=== PATIENT | female | born 1975 | race Caucasian/White ===

== ENCOUNTER 2019-05-03 23:39 | Inpatient (IN) | payer MEDICAID, MEDICARE ==
[~2019-05-03] VITALS: Ht 165.1 cm; Wt 114.1 kg
[2019-05-04] MEDS ORDERED: METHYLPREDNISOLONE SOD SUCC 125 MG/2 ML VIAL IV STA (00:25)
[2019-05-04] MEDS ORDERED: SODIUM CHLORIDE 0.9% 1,000 ML IV ONE (00:25)
[2019-05-04] MEDS ORDERED: MAGNESIUM 2 G PREMIX 50 ML IV ONE (00:30)
[2019-05-04] MEDS ORDERED: IPRATROPIUM/ALBUTEROL 0.5-3(2.5)MG/3ML NEB HHN ONE (00:30)
[2019-05-04 00:47] LABS: CHLORIDE 103 mEq/L (98-107)
[2019-05-04 00:49] LABS: BASOPHILS % 0.8 % (0.0-2.0); EOSINOPHILS % 0.9 % (0.0-5.0); HEMATOCRIT. 43.6 % (36.0-48.0); HEMOGLOBIN. 14.3 g/dL (12.0-16.0); LYMPHOCYTES % 8.8 % (20.0-50.0); MEAN CORPUSCULAR HEMOGLOBIN 26.3 pg (28.0-32.0); MEAN CORPUSCULAR VOLUME 80.2 fL (81.0-99.0); MEAN PLATELET VOLUME 8.5 fl (7.4-10.4); MONOCYTES % 5.9 % (2.0-8.0); NEUTROPHILS % 83.6 % (40.0-76.0); PLATELET 294 x1000/uL (130-400); RED BLOOD CELL COUNT 5.43 mill/uL (4.2-5.4); RED CELL DISTRIBUTION WIDTH 16.6 % (11.6-14.6)
[2019-05-04] MEDS ORDERED: ALBUTEROL (0.5%) 2.5MG/0.5ML NEB HHN ONE (01:30)
[2019-05-04] MEDS ORDERED: ACETAMINOPHEN 325MG TABLET PO PRN (03:00)
[2019-05-04] MEDS ORDERED: IPRATROPIUM/ALBUTEROL 0.5-3(2.5)MG/3ML NEB HHN SCH (03:00)
[2019-05-04] MEDS ORDERED: DIPHENHYDRAMINE 50MG/ML VIAL IV PRN (03:00)
[2019-05-04] MEDS ORDERED: DEXTROSE 50% WATER 50ML SYRINGE IV PRN ×2 (03:00→05:00)
[2019-05-04] MEDS ORDERED: ONDANSETRON HCL 4MG/2ML INJ IV PRN (03:00)
[2019-05-04] MEDS ORDERED: IPRATROPIUM/ALBUTEROL 0.5-3(2.5)MG/3ML NEB INH PRN (03:00)
[2019-05-04] MEDS ORDERED: MAGNESIUM/ALUMINUM HYDROXIDE/SIMETHICONE 30ML UDC PO PRN (03:00)
[2019-05-04] MEDS ORDERED: GUAIFENESIN 200MG/10ML SUGAR FREE UDC PO PRN (03:00)
[2019-05-04] MEDS ORDERED: CLONIDINE 0.1MG TABLET PO PRN (03:00)
[2019-05-04 04:35] VITALS: BP 144/86
[2019-05-04] MEDS ORDERED: [UNRECOGNIZED DRUG - CODE] PO (05:43)
[2019-05-04] MEDS ORDERED: AZIT250T12 PO (05:43)
[2019-05-04] MEDS ORDERED: NIFE30TA94 PO (05:43)
[2019-05-04] MEDS ORDERED: ALPR1TAB2 PO (05:43)
[2019-05-04] MEDS ORDERED: LOSA1TAB37 PO (05:43)
[2019-05-04] MEDS ORDERED: SODIUM CHLORIDE 0.9% INJ 3ML FLUSH IVF SCH (06:00)
[2019-05-04] MEDS ORDERED: METHYLPREDNISOLONE SOD SUCC 125 MG/2 ML VIAL IV SCH (06:00)
[2019-05-04] MEDS: METHYLPREDNISOLONE SOD SUCC 125 MG/2 ML VIAL IV SCH ×3 (06:22→21:15)
[2019-05-04] MEDS: SODIUM CHLORIDE 0.9% INJ 3ML FLUSH IVF SCH ×3 (06:23→21:19)
[2019-05-04] MEDS: INSULIN LISPRO 100 UNITS/ML SUBCUT SCH ×4 (06:24→21:23)
[2019-05-04] MEDS: BLOOD SUGAR DIAGNOSTIC STRIP TEST SCH ×4 (06:24→21:16)
[2019-05-04] MEDS: IPRATROPIUM/ALBUTEROL 0.5-3(2.5)MG/3ML NEB HHN SCH ×5 (06:48→20:00)
[2019-05-04 08:00] VITALS: BP 130/72
[2019-05-04] MEDS ORDERED: INSULIN LISPRO 100 UNITS/ML SUBCUT SCH (08:20)
[2019-05-04] MEDS ORDERED: BLOOD SUGAR DIAGNOSTIC STRIP TEST SCH (09:00)
[2019-05-04] MEDS ORDERED: FAMOTIDINE 20MG/2ML VIAL IV SCH (09:00)
[2019-05-04] MEDS ORDERED: AMLODIPINE 5MG TABLET PO SCH ×2 (09:00)
[2019-05-04] MEDS: FAMOTIDINE 20MG/2ML VIAL IV SCH ×2 (09:09→21:15)
[2019-05-04] MEDS: GUAIFENESIN 200MG/10ML SUGAR FREE UDC PO PRN (11:17)
[2019-05-04 12:00] VITALS: BP 150/68
[2019-05-04] MEDS: LORATADINE 10MG TABLET PO SCH (14:32)
[2019-05-04] MEDS: AZITHROMYCIN 500 MG TABLET PO SCH (14:32)
[2019-05-04 16:00] VITALS: BP 150/90
[2019-05-04] MEDS ORDERED: MONTELUKAST SODIUM 10MG TABLET PO SCH (17:00)
[2019-05-04] MEDS: NICOTINE 14MG PATCH TD SCH (17:35)
[2019-05-04 18:35] LABS: T4 FREE 1.03 ng/dL (0.76-1.46)
[2019-05-04 20:00] VITALS: BP 138/82
[2019-05-04] MEDS ORDERED: IBUPROFEN 800MG TABLET PO PRN (20:15)
[2019-05-04] MEDS ORDERED: ALPRAZOLAM 0.5 MG TABLET PO SCH (21:00)
[2019-05-04] MEDS: GUAIFENESIN 600MG ER TABLET PO SCH (21:22)
[2019-05-04] MEDS: BUDESONIDE 0.5MG/2ML NEB HHN SCH (21:34)
[2019-05-05] VITALS: BP 122/72
[2019-05-05] MEDS: GUAIFENESIN 200MG/10ML SUGAR FREE UDC PO PRN (00:54)
[2019-05-05] MEDS: IPRATROPIUM/ALBUTEROL 0.5-3(2.5)MG/3ML NEB HHN SCH ×5 (01:08→15:22)
[2019-05-05 04:00] VITALS: BP 147/98
[2019-05-05] MEDS: BLOOD SUGAR DIAGNOSTIC STRIP TEST SCH ×2 (06:13→11:58)
[2019-05-05] MEDS: SODIUM CHLORIDE 0.9% INJ 3ML FLUSH IVF SCH ×2 (06:13→15:21)
[2019-05-05] MEDS: METHYLPREDNISOLONE SOD SUCC 125 MG/2 ML VIAL IV SCH ×2 (06:13→15:21)
[2019-05-05] MEDS: INSULIN LISPRO 100 UNITS/ML SUBCUT SCH ×2 (06:22→12:35)
[2019-05-05 08:11] VITALS: BP 137/78
[2019-05-05] MEDS: BUDESONIDE 0.5MG/2ML NEB HHN SCH (08:57)
[2019-05-05] MEDS ORDERED: NIFEDIPINE XL 30MG TAB PO SCH (09:00)
[2019-05-05] MEDS ORDERED: HYDROCHLOROTHIAZIDE 25MG TABLET PO SCH (09:00)
[2019-05-05] MEDS ORDERED: LOSARTAN POTASSIUM 100 MG TABLET PO SCH (09:00)
[2019-05-05] MEDS: FAMOTIDINE 20MG/2ML VIAL IV SCH (09:58)
[2019-05-05] MEDS: NICOTINE 14MG PATCH TD SCH (09:58)
[2019-05-05] MEDS: AZITHROMYCIN 500 MG TABLET PO SCH (09:58)
[2019-05-05] MEDS: GUAIFENESIN 600MG ER TABLET PO SCH (09:58)
[2019-05-05] MEDS: LORATADINE 10MG TABLET PO SCH (09:58)
[2019-05-05 12:00] VITALS: BP 131/66
[2019-05-05 16:00] VITALS: BP 134/73
[2019-05-05 16:39] VITALS: BP 134/73
== END 2019-05-05 17:20 | disposition home or self-care (01) | DRG 871 ==
LOC: ER 23:39 → 5WST 05-04 02:02 → ENRESERV 05-04 03:36 → ER 05-04 04:59
PROVIDERS: ADMIT Internal Medicine; ATTEND Internal Medicine
PROC: 5A09357 Assistance with Respiratory Ventilation, Less than 24 Consecutive Hours, Continuous Positive Airway Pressure (ICD-10-PCS; principal; 2019-05-05)
DX: A41.9 Sepsis, unspecified organism (principal); J96.00 Acute respiratory failure, unspecified whether with hypoxia or hypercapnia; J45.901 Unspecified asthma with (acute) exacerbation; Z68.41 Body mass index [BMI] 40.0-44.9, adult; E66.01 Morbid (severe) obesity due to excess calories; G35 Multiple sclerosis; J20.9 Acute bronchitis, unspecified; F17.210 Nicotine dependence, cigarettes, uncomplicated; F41.1 Generalized anxiety disorder; E11.65 Type 2 diabetes mellitus with hyperglycemia; I10 Essential (primary) hypertension; Z83.3 Family history of diabetes mellitus; Z80.51 Family history of malignant neoplasm of kidney; Z88.8 Allergy status to other drugs, medicaments and biological substances
CPT/HCPCS: 36415; 71045; 82962; 83036; 84439; 84443; 93970; 94640; 94660; 97110; 97161; 99285; J1200; J1815; J2930; J3475; J3490; J7030; J7611; J7620; J7626